=== PATIENT | male | born 2005 | race Caucasian/White ===

== ENCOUNTER 2024-07-12 06:26 | Outpatient (CLI) | payer OTHER, SELFPAY | END 2024-07-12 06:27 | disposition home or self-care (01) | PROVIDERS: Visit Provider Family Medicine | DX: T14.90XA Injury, unspecified, initial encounter (principal); F41.9 Anxiety disorder, unspecified; V49.49XA Driver injured in collision with other motor vehicles in traffic accident, initial encounter; Y92.414 Local residential or business street as the place of occurrence of the external cause | CPT/HCPCS: A0998 ==

== ENCOUNTER 2024-07-12 08:38 | Emergency (ER) | payer OTHER, SELFPAY ==
[2024-07-12] VITALS (35 sets, daily range): BP systolic 118–134; BP diastolic 65–102; PULSE 68–107; RESP 16–18; TEMP 37; O2SAT 93–100; BMI 32.1
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
[2024-07-12] MEDS: ACETAMINOPHEN 500 MG TABLET 1000 MG PO (11:19)
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
== END 2024-07-12 16:21 | disposition home or self-care (01) ==
PROVIDERS: Emergency Provider Family Medicine
DX: S06.6XAA Traumatic subarachnoid hemorrhage with loss of consciousness status unknown, initial encounter (principal); V43.52XA Car driver injured in collision with other type car in traffic accident, initial encounter; W22.11XA Striking against or struck by driver side automobile airbag, initial encounter
CPT/HCPCS: 70450; 71046; 99284; 99285; 99291; A9270; G0390